=== PATIENT | male | born 1990 | race Caucasian/White ===

== ENCOUNTER 2018-04-30 12:38 | Emergency (ER) | payer SELFPAY ==
--- NOTE | 2018-04-30 12:52 | EDPHY ---
H & P Time Seen by Provider: 04/30/18 12:44 HPI/ROS: CHIEF COMPLAINT: Right arm pain HISTORY OF PRESENT ILLNESS: The patient is a 27-year-old male who presents to the emergency department with a right arm injury. The patient was at the [facility] when he fell forward on his outstretched arm. He noted deformity is distal forearm. His pain is moderate. Does not radiate. He has no elbow, proximal arm or shoulder pain. He did not strike his head or lose consciousness. No neck or back pain. REVIEW OF SYSTEMS: My complete review of systems is negative except as mentioned in the HPI. Past Medical/Surgical History: Denies Smoking Status: Current every day smoker Physical Exam: Vitals noted GENERAL: Well-appearing, in no acute distress, alert. HEAD: No evidence of trauma. EYES: PERRLA, EOMI, normal to inspection. ENT: Airway intact, normal external examination. NECK: The trachea is midline. There is no crepitus. The C-spine is nontender. NEXUS criteria is negative (no midline tenderness, no distracting injury, no altered mental status, no recent alcohol use, no focal neurologic deficit). RESPIRATORY: Clear to auscultation bilaterally, no rales, rhonchi or wheezing. There is no crepitus or palpable rib fractures. CVS: Regular rate and rhythm, no rubs, murmurs, or gallops. ABDOMEN: Soft, nontender, nondistended, normal bowel sounds, no bruising or abrasions. Pelvis: Stable. No tenderness palpation. Hips full range of motion. BACK: Normal to inspection, no spinal tenderness, no spinal step off, no notable bruising or abrasions. SKIN: Normal color, warm, dry. No pallor or diaphoresis. EXTREMITIES: Right upper extremity: Patient has mild deformity of his distal forearm. There is no laceration. Patient's hand and wrist are nontender. Patient's elbow, humerus and shoulder nontender. His neurovascular intact distally.. Neurovascular intact distally. Left upper extremity: Atraumatic. No visible signs of trauma. No tenderness palpation. Neurovascular intact distally. Right lower extremity: Atraumatic. No visible signs of trauma. No tenderness palpation. Neurovascular intact distally. Left lower extremity: Atraumatic. No visible signs of trauma. No tenderness palpation. Neurovascular intact distally. NEURO/PSYCH: Alert and oriented x 3, GCS 15, normal mood and affect, normal motor sensory exam. Constitutional: Initial Vital Signs Temperature (C) 36.8 C 04/30/18 12:48 Heart Rate 81 04/30/18 12:48 Respiratory Rate 18 04/30/18 12:48 Blood Pressure 125/87 H 04/30/18 12:48 O2 Sat (%) 95 04/30/18 12:48 O2 Delivery Mode Room Air Allergies/Adverse Reactions: No Known Allergies Allergy (Verified 04/30/18 12:48) Home Medications: Medication Instructions Recorded Inhalers 08/05/10 Ondansetron Odt [Zofran Odt 4 mg 4 mg PO Q4PRN PRN #7 tab 04/30/18 (*)] oxyCODONE/APAP 5/325 [Percocet 1 - 2 tab PO Q4PRN PRN #17 tab 04/30/18 5/325 (*)] Medical Decision Making - Diagnostics Imaging Results: Imaging Impressions Forearm X-Ray 04/30/18 12:54 Impression: Distal radial and ulnar fractures as detailed above. Wrist X-Ray 04/30/18 14:25 Impression: Improved alignment following reduction of the intra-articular fracture of the distal right radius. Procedures: Procedure: Hematoma block of the left wrist Indication: Left radius fracture Patient consented to the hematoma block. I discussed the pros and cons. 7 ml of 1% lidocaine was injected the lateral aspect of the wrist. Patient tolerated the procedure well. Procedure: Left wrist reduction Indication: Left wrist radius fracture Patient consented to reduction. The patient was given fentanyl and Toradol IV prior to the procedure. He was also given hematoma block. Using standard technique using traction the wrist was reduced. Patient was placed in a sugar- tong splint postprocedure. NVID post procedure. ED Course/Re-evaluation: In the emergency department I met EMS on arrival. I took report from the overhead door technician. Patient did receive fentanyl in route. Patient was given a repeat dose of fentanyl in the emergency department for ongoing pain. Right forearm x-ray: Patient has comminuted fracture of the distal left radius. I discussed the results with the patient. I answered all his questions. He was given hematoma block. Patient was given fentanyl 50 mcg IV and Toradol 30 mg IV for pain. Patient had his left wrist reduced and placed in a sugar-tong Ortho Glass splint. This was performed by me. I discussed the case with Orthopedics. They reviewed the post reduction films. They requested the patient be placed in a ulnar deviation wrist flexion Ortho Glass splint. Patient was given a sling for comfort. He was given warnings prior to leaving. He will follow up with Orthopedics. Differential Diagnosis: My differential includes but is not limited to fracture, dislocation, contusion , sprain - Data Points Medications Given: Discontinued Medications Fentanyl (Sublimaze) 100 mcg IVP EDNOW ONE Stop: 04/30/18 13:16 Last Admin: 04/30/18 13:16 Dose: 100 mcg Fentanyl (Sublimaze) 50 mcg IVP EDNOW ONE Stop: 04/30/18 14:04 Last Admin: 04/30/18 14:05 Dose: 50 mcg Ketorolac Tromethamine (Toradol) 30 mg IVP EDNOW ONE Stop: 04/30/18 14:04 Last Admin: 04/30/18 14:05 Dose: 30 mg Departure - Departure Disposition: Home, Routine, Self-Care Clinical Impression: Radius fracture Qualifiers: Encounter type: initial encounter Radius location: distal Fracture type: closed Fracture morphology: unspecified fracture morphology Laterality: left Qualified Code(s): S52.502A - Unspecified fracture of the lower end of left radius, initial encounter for closed fracture Condition: Good Instructions: Oxycodone/Acetaminophen (By mouth), Ondansetron (By mouth), Wrist Fracture in Adults (ED) Additional Instructions: You need close follow-up with Orthopedics. Call today to make an appointment. You should be seen early next week. Keep your splint in place. Referrals: Mariano Cerda MD [Medical Doctor] - 1-2 days without fail Prescriptions: Ondansetron Odt [Zofran Odt 4 mg (*)] 4 mg PO Q4PRN PRN #7 tab PRN Reason: For Nausea & Vomiting oxyCODONE/APAP 5/325 [Percocet 5/325 (*)] 1 - 2 tab PO Q4PRN PRN #17 tab PRN Reason: For Moderate To Severe Pain
[2018-04-30] MEDS ORDERED: fentaNYL 100 MCG/2 ML INJ ONE (13:13)
[2018-04-30] MEDS ORDERED: fentaNYL 100 MCG/2 ML INJ IVP ONE ×2 (13:15→14:03)
[2018-04-30] MEDS ORDERED: KETOROLAC 30 MG/1 ML SDV IVP ONE (14:03)
[2018-04-30 15:15] VITALS: BP 112/63
== END 2018-04-30 15:33 | disposition home or self-care (01) ==
LOC: EDUNIT#
PROC: 0PSJXZZ Reposition Left Radius, External Approach (ICD-10-PCS; principal; 2018-04-30)
DX: S52.502A Unspecified fracture of the lower end of left radius, initial encounter for closed fracture (principal); F17.200 Nicotine dependence, unspecified, uncomplicated; W19.XXXA Unspecified fall, initial encounter
CPT/HCPCS: 96374; J1885; J3010; L3925